=== PATIENT | female | born 1990 | race Caucasian/White ===

== ENCOUNTER 2016-06-17 14:16 | Emergency (ER) | payer SELFPAY ==
[2016-06-17 14:17] VITALS: BMI 28.3
[2016-06-17 14:28] VITALS: TEMP 98.6
--- NOTE | 2016-06-17 15:03 | EDPRACDOC ---
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 PT IS VERY ANXIOUS AND UP MOVING AROUND THE ROOM. SHE IS EXHIBITING MILD PARANOIA WITH MULTIPLE COMPLAINTS FROM RED RASH ON HER HANDS THAT APPEARS TO BE EXCORIATIONS TO RIGHT SHOULDER PAIN AND STATES HER PIMP IS AFTER HER STATING THAT AFTER SHE SHOT UP WITH METH SHE HEARD THEM SAY THEY WERE GOING TO WAIT UNTIL SHE WAS NUMB AND WERE GOING TO DISMANTLE HER. PT DOES APPEAR INTOXICATED WITH MOST LIKELY METHAMPHETAMINES. 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 Denies: Depression Surgical History: Reports: Tonsillectomy/Adnoidectomy - Social Medical History Smoking Status: Heavy tobacco smoker (5 or more cigarettes/day or daily pipe/ cigar) ETOH: None Substance Abuse: None Lives With: Other Lives In: Home EDM Review of Systems - Review of Systems ROS Negative Except as Marked: Yes All systems reviewed and were negative except as marked Constitutional: No Symptoms Reported. negative: Fever, Chills, Weakness, Fatigue, Loss of Appetite Eyes: No Symptoms Reported. negative: Redness, Blurred Vision, Double Vision, Discharge, Pain, Light Sensitive, Photophobia Ears: No Symptoms Reported. negative: Pain, Hearing Loss, Drainage, Ear Pulling Throat: No Symptoms Reported. negative: Pain, Swelling Nose: No Symptoms Reported. negative: Congestion, Bleeding, Discharge, Injection, Swelling, Deformity, Ecchymosis, Tender, Abrasion, Laceration Mouth: No Symptoms Reported. negative: Pain, Drooling Respiratory: No Symptoms Reported. negative: Cough, Brassy Cough, Barky Cough, Shortness of Breath, Wheezing, Hemoptysis Cardiovascular: No Symptoms Reported. negative: Chest Pain, Palpitations, Syncope, Edema, Orthopnea, PND, Skin Mottling, Cyanosis Gastrointestinal: No Symptoms Reported. negative: Pain, Constipation, Nausea, Vomiting, Diarrhea, Melena, Formula Intolerance Genitourinary: No Symptoms Reported. negative: Dysuria, Hematuria, Frequency, Discharge, Bleeding, Testicular Pain, Neurological: Numbness (ALL OVER STATES SHE CANT FEEL ANYTHING). negative: Dizziness, Gait Difficulty, Headache, Seizure, Speech Difficulty, Weakness Musculoskeletal: Shoulder (RIGHT POSTERIOR). negative: Arm, Ankle, Back, Chestwall, Elbow, Forearm, Femur, Foot, Hand, Hip, Knee, Leg, Neck, Pelvis, Ribs , Wrist Integumentary: No Symptoms Reported. negative: Itching, Rash, Bruising, Wound Allergic/Immunologic: No Symptoms Reported. negative: Hives, Itching Hematologic: No Symptoms Reported. negative: Lymphadenopathy, Easy Bruising, Easy Bleeding Endocrine: No Symptoms Reported. negative: Weight Gain, Weight Loss Psychiatric: No Symptoms Reported. negative: Anxiety, Depression, Hallucinations, Insomnia, Suicidal - Physical Exam Constitutional: Alert (Awake), Other (INTOXICATED) Oriented to: Time, Person, Place Last recorded Vital Signs: Last Vital Signs Temp 98.6 F 06/17/16 14:19 Pulse 82 06/17/16 14:19 Resp 20 06/17/16 14:19 BP 129/79 06/17/16 14:19 Pulse Ox 97 06/17/16 14:19 Oxygen Pulse Oxygen Saturation 97 O2 Device Room Air Oxygen Flow Rate Fraction of Inspired Oxygen ( FIO2) - HEENT Head: Normal ( normocephalic) Eye Exam: Normal (PERRL, EOMI, Sclera white) Oropharynx: Normal (Pharynx:Moist without exudate,Gums-no swelling) Tympanic Membrane: Normal ENT EAC: Normal TMJ: Normal Nose: No Symptoms Reported (septum midline) Neck: Normal (FROM, trachea at midline) - Respiratory/Cardiovascular Respiratory: Normal - CTA (BBS clear to auscultation without adventitious sounds ) Cardiovascular: Normal (RRR without murmur, gallop or rub) - GI Auscultation: Normal (NABS) Palpation: Normal (Soft,No rebound or guarding, non distended) Tenderness: Non tender Ferrer's Sign: Negative - Bladder: Normal - Musculoskeletal Back: Normal (Non-Tender) Extremities: Normal (Normal tone, Pulses 2+ No cyanosis or edema, FROM) Musculoskeletal Comment: FULL ROM AND NVI BILATERAL SHOULDERS AND UPPER EXTREMITIES. - Integumentary Skin: Normal, Warm, Dry, Rash (EXCORIATIONS TO BILATERAL DORSAL HANDS BLANCHABLE ) Lymphatics: Normal (no adenopathy) - Neurologic Memory Impaired: Normal Motor Function: Normal (Normal tone, Pulses 2+ No cyanosis or edema, FROM) Cranial Nerve: Normal (CN II-X11 intact sensation, strength 5/5) Cerebellar: Normal Mood Description: Anxious Thought: Flight of Ideas, Paranoia, Rambling Conversation Perception: Normal (DENIES) - Differential Diagnosis Anxiety, Bipolar Disorder, Conversion Disorder, Depression, Panic Disorder, Substance Abuse - Results 06/17/16 15:05 06/17/16 15:05 - EKG EKG #1 EKG Time: 15:07 -: Yes EKG interpreted by me Rate: bpm: 72 [place]: Normal Rhythm: NSR Block: None Hypertrophy: None ST: Normal Decision Time to Discharge: 16:38 - Departure Disposition: Home Condition: Stable Final Diagnosis: Substance abuse, Methamphetamine abuse, Drug-induced paranoia or hallucinations Instructions: Methamphetamine Abuse (ED), Polysubstance Abuse (ED) Education/Counseling Given To: Patient Education/Counseling Given Regarding: Diagnosis, Treatment, Prognosis, Follow Up Referrals: None,No Provider [Primary Care Provider] - One Week Prescriptions: HydrOXYzine Pamoate (Anxiety) [Vistaril] 25 - 50 mg PO TID PRN #15 cap PRN Reason: Anxiety Additional Instructions: STOP ABUSING ILLICIT DRUGS AND YOUR SYMPTOMS WILL SUBSIDE.
[2016-06-17] MEDS ORDERED: DIAZEPAM 5 MG TAB PO ONE (15:11)
[2016-06-17 15:18] LABS: AUTOMATED BASOPHIL 0.6 % (0-2); AUTOMATED EOSINOPHIL 7.6 % (0-5); AUTOMATED LYMPH 25.7 % (17-44); AUTOMATED MONOCYTE 7.6 % (3-10); AUTOMATED NEUTROPHIL 58.5 % (45-76); MPV 8.3 fL (7.4-10.4)
[2016-06-17 15:21] LABS: ALL NEG? NO
[2016-06-17 15:32] LABS: BLOOD UREA NITROGEN 10 MG/DL (7-17); CALCIUM 9.6 MG/DL (8.4-10.2); CALCULATED OSMOLALITY 272 MOs/Kg (270-290); CHLORIDE 103 mEq/L (98-107); ETOH-MGDL < 10 mg/dL; GLUCOSE 93 MG/DL (70-99); SODIUM LEVEL 142 mEq/L (137-146)
[2016-06-17 15:37] LABS: MDMA* *POSITIVE* (NEGATIVE); METHAMPHETAMINES *POSITIVE* (NEGATIVE); OXYCODONE NEG (NEGATIVE)
[2016-06-17 15:39] LABS: LEUKOCYTES/URINE NEG (NEGATIVE); NITRITE/URINE NEG (NEGATIVE); URINE OCCULT BLOOD NEG (NEG/TRACE)
[2016-06-17 16:52] VITALS: BP 120/67; PULSE 80
== END 2016-06-17 17:00 | disposition home or self-care (01) ==
LOC: EDMC 14:16
DX: F15.10 Other stimulant abuse, uncomplicated (principal); R44.3 Hallucinations, unspecified; T43.625A Adverse effect of amphetamines, initial encounter
CPT/HCPCS: 36415; 80053; 80307; 81001; 81025; 84484; 85025; 93005; 99283; J3490